=== PATIENT | female | born 1955 | race Caucasian/White ===

== ENCOUNTER 2017-05-27 11:10 | Inpatient (IN) | payer MEDICAID, OTHER ==
[~2017-05-27] VITALS: Ht 165.1 cm; Wt 51.0 kg
[~2017-05-27 11:10] MED LIST: CYCL-394 PO; ZOF4T PO
[2017-05-27 13:05] LABS: BASOPHILS % (AUTO) 0.6 % (0-1); EOSINOPHILS % (AUTO) 0.1 % (0-6); HEMATOCRIT 43.1 % (35.0-45.0); HEMOGLOBIN 14.5 g/dl (12.0-16.0); LYMPHOCYTES # (AUTO) 0.9 X10'3 (1.1-4.8); LYMPHOCYTES % (AUTO) 13.5 % (21-51); MEAN CORPUSCULAR HEMOGLOBIN 32.6 PG (27.0-31.0); MEAN CORPUSCULAR HGB CONC 33.7 % (33.0-36.5); MEAN CORPUSCULAR VOLUME 96.8 FL (78-98); MEAN PLATELET VOLUME 9.2 FL (7.4-10.4); MONOCYTES # (AUTO) 0.7 X10'3 (0-0.9); MONOCYTES % (AUTO) 10.4 % (2-12); NEUTROPHILS # (AUTO) 5.3 X10'3 (1.8-7.7); NEUTROPHILS % (AUTO) 75.4 % (42-75); PLATELET COUNT 195 X10'3 (140-440); RED BLOOD COUNT 4.45 X10'6 (4.20-5.60); RED CELL DISTRIBUTION WIDTH 12.9 % (11.5-14.5)
[2017-05-27] MEDS ORDERED: ipratropium/albuterol 3ml nebule NEB ONE ×2 (13:05→15:25)
[2017-05-27 13:21] LABS: ALANINE AMINOTRANSFERASE 21 U/L (12-78); ALBUMIN 3.2 G/DL (3.4-5.0); ALBUMIN/GLOBULIN RATIO 0.9 (1.1-1.5); ALKALINE PHOSPHATASE 72 IU/L (46-116); ANION GAP 5 (8-16); ASPARTATE AMINO TRANSFERASE 32 U/L (10-37); BILIRUBIN,TOTAL 0.3 MG/DL (0.1-1.0); BLOOD UREA NITROGEN 11 MG/DL (7-18); BUN/CREATININE RATIO 17.5 (6.6-38.0); CALCIUM 8.2 MG/DL (8.5-10.1); CHLORIDE 98 MMOL/L (99-107); CREATININE 0.63 MG/DL (0.40-0.90); GLUCOSE 97 MG/DL (70-104); POTASSIUM 3.3 MMOL/L (3.5-5.1); SODIUM 135 MMOL/L (135-145); TOTAL CARBON DIOXIDE 31.9 MMOL/L (24-32); TOTAL PROTEIN 6.6 G/DL (6.4-8.2); eGFR > 90 ML/MIN
[2017-05-27 13:24] LABS: PARTIAL THROMBOPLASTIN TIME 32 SECONDS (22-32); PROTHROMBIN TIME 10.1 SECONDS (9.0-12.0)
[2017-05-27 14:08] LABS: PLATELET ESTIMATE NORMAL; TOTAL CELLS COUNTED 100
[2017-05-27 14:14] LABS: CLARITY,URINE CLEAR (Clear); COLOR,URINE YELLOW (Yellow); GLUCOSE, URINE NEGATIVE (Neg); KETONES,URINE 15 mg/dl (Neg); LEUKOCYTE ESTERASE ,URINE NEGATIVE (Neg); NITRITES, URINE NEGATIVE (Neg); OCCULT BLOOD,URINE MODERATE (Neg); PROTEIN,URINE 100 mg/dl (Neg); UROBILINOGEN,URINE 0.2 E.U/dL (0.2-1.0)
[2017-05-27 14:16] LABS: UA COLLECTION TYPE CLN CATCH MIDSTREAM
[2017-05-27 14:18] LABS: WBC,URINE 0-4 /HPF (0-4)
[2017-05-27 14:19] LABS: BACTERIA,URINE FEW /HPF (Neg); RBC,URINE 0-2 /HPF (0-2); SQUAMOUS EPITHELIAL CELL,UR FEW /LPF (FEW)
[2017-05-27] MEDS ORDERED: oseltamivir phos 75mg capsule PO ONE (14:35)
[2017-05-27] MEDS ORDERED: TAM75C PO (15:13)
[2017-05-27] MEDS ORDERED: ALBU8.5H8 IH (15:13)
[2017-05-27] MEDS ORDERED: AMOX-422 PO (15:13)
[2017-05-27] MEDS ORDERED: METH4TAB81 PO (15:13)
[2017-05-27] MEDS ORDERED: dexamethasone sod phosphate 10mg/ml inj IM STA (15:22)
[2017-05-27] MEDS ORDERED: acetaminophen 325mg tablet PO PRN (15:50)
[2017-05-27] MEDS ORDERED: ipratropium/albuterol 3ml nebule NEB PRN (15:50)
[2017-05-27] MEDS ORDERED: ondansetron/PF 4mg/2ml inj IV PRN (15:50)
[2017-05-27] MEDS ORDERED: magnesium hydroxide 30ml (MOM) UD suspension PO PRN (15:50)
[2017-05-27] MEDS ORDERED: mag hydrox/Alum hydrox/simeth 30ml oral suspension PO PRN (15:50)
[2017-05-27] MEDS ORDERED: dronabinol 2.5mg capsule PO PRN (16:30)
[2017-05-27 19:00] VITALS: BP_SYST 101; BP_SYST 96; BP_DIAS 62; BP_DIAS 63
[2017-05-27] MEDS: oseltamivir phos 75mg capsule PO SCH (21:29)
[2017-05-27] MEDS: methylPREDNISolone sod succ 125mg/2ml vial IV SCH (21:29)
[2017-05-28] VITALS: BP 104/66
[2017-05-28 04:10] LABS: BASOPHILS % (AUTO) 0.4 % (0-1); EOSINOPHILS % (AUTO) 0.1 % (0-6); HEMATOCRIT 42.3 % (35.0-45.0); HEMOGLOBIN 14.4 g/dl (12.0-16.0); LYMPHOCYTES # (AUTO) 0.5 X10'3 (1.1-4.8); LYMPHOCYTES % (AUTO) 21.7 % (21-51); MEAN CORPUSCULAR HEMOGLOBIN 32.6 PG (27.0-31.0); MEAN CORPUSCULAR HGB CONC 34.2 % (33.0-36.5); MEAN CORPUSCULAR VOLUME 95.3 FL (78-98); MEAN PLATELET VOLUME 9.9 FL (7.4-10.4); MONOCYTES # (AUTO) 0.1 X10'3 (0-0.9); NEUTROPHILS # (AUTO) 1.7 X10'3 (1.8-7.7); NEUTROPHILS % (AUTO) 71.8 % (42-75); PLATELET COUNT 193 X10'3 (140-440); RED BLOOD COUNT 4.44 X10'6 (4.20-5.60); RED CELL DISTRIBUTION WIDTH 13.1 % (11.5-14.5); WHITE BLOOD COUNT 2.4 X10'3 (4.5-11.0)
[2017-05-28 04:28] LABS: ALANINE AMINOTRANSFERASE 30 U/L (12-78); ALBUMIN/GLOBULIN RATIO 0.9 (1.1-1.5); ALKALINE PHOSPHATASE 67 IU/L (46-116); ANION GAP 5 (8-16); ASPARTATE AMINO TRANSFERASE 36 U/L (10-37); BILIRUBIN,TOTAL 0.2 MG/DL (0.1-1.0); BLOOD UREA NITROGEN 10 MG/DL (7-18); BUN/CREATININE RATIO 17.2 (6.6-38.0); CALCIUM 8.2 MG/DL (8.5-10.1); CHLORIDE 99 MMOL/L (99-107); CREATININE 0.58 MG/DL (0.40-0.90); GLUCOSE 153 MG/DL (70-104); POTASSIUM 3.3 MMOL/L (3.5-5.1); SODIUM 136 MMOL/L (135-145); TOTAL PROTEIN 6.4 G/DL (6.4-8.2); eGFR > 90 ML/MIN
[2017-05-28] MEDS ORDERED: pneumococcal 23-VAL P-sac vacc 25 mcg/0.5ml vial IMVAC ONE (06:10)
[2017-05-28 07:10] VITALS: BP 115/69
[2017-05-28] MEDS: methylPREDNISolone sod succ 125mg/2ml vial IV SCH ×3 (09:07→22:20)
[2017-05-28] MEDS: oseltamivir phos 75mg capsule PO SCH ×2 (09:09→22:21)
[2017-05-28] MEDS: enoxaparin 40mg/0.4ml syringe SQ SCH (09:11)
[2017-05-28] MEDS: levoFLOXACIN-Levaquin 750MG/D5 150 ML IV SCH (09:16)
[2017-05-28 09:49] LABS: TOTAL CELLS COUNTED 100
[2017-05-28 09:50] LABS: GIANT PLATELET FEW; PLATELET ESTIMATE NORMAL; SMUDGE CELLS 2+
[2017-05-28] MEDS ORDERED: acetaminophen 325mg tablet PO PRN (11:00)
[2017-05-28] MEDS: dronabinol 2.5mg capsule PO PRN ×3 (11:08→22:32)
[2017-05-28 11:39] VITALS: BP 109/64
[2017-05-28] MEDS: lactobacillus rhamnosus 10,000 MMU CELLS/CAPSULE PO SCH (17:45)
[2017-05-28] MEDS ORDERED: potassium Cl 40MEQ/NS 500ml 500 ML IV PRN ×2 (17:55)
[2017-05-28] MEDS ORDERED: magnesium 2GM in 50ml NS 50 ML IV PRN (17:55)
[2017-05-28] MEDS ORDERED: magnesium 4gm in 100ml NS 100 ML IV PRN (17:55)
[2017-05-28] MEDS ORDERED: magnesium Cl slow-release 64mg tablet PO PRN (17:55)
[2017-05-28] MEDS ORDERED: potassium Cl 20 mEq SR tablet PO PRN ×2 (17:55)
[2017-05-28 19:00] VITALS: BP 96/62
[2017-05-29] VITALS: BP 104/66
[2017-05-29 05:45] LABS: BASOPHILS % (AUTO) 0.1 % (0-1); EOSINOPHILS % (AUTO) 0.4 % (0-6); HEMATOCRIT 41.3 % (35.0-45.0); HEMOGLOBIN 13.9 g/dl (12.0-16.0); LYMPHOCYTES # (AUTO) 0.7 X10'3 (1.1-4.8); LYMPHOCYTES % (AUTO) 9.1 % (21-51); MEAN CORPUSCULAR HEMOGLOBIN 32.3 PG (27.0-31.0); MEAN CORPUSCULAR HGB CONC 33.6 % (33.0-36.5); MEAN CORPUSCULAR VOLUME 96.3 FL (78-98); MEAN PLATELET VOLUME 9.9 FL (7.4-10.4); MONOCYTES # (AUTO) 0.8 X10'3 (0-0.9); MONOCYTES % (AUTO) 9.5 % (2-12); NEUTROPHILS # (AUTO) 6.5 X10'3 (1.8-7.7); NEUTROPHILS % (AUTO) 80.9 % (42-75); PLATELET COUNT 193 X10'3 (140-440); RED BLOOD COUNT 4.29 X10'6 (4.20-5.60)
[2017-05-29 06:24] LABS: ALANINE AMINOTRANSFERASE 52 U/L (12-78); ALBUMIN 2.9 G/DL (3.4-5.0); ALBUMIN/GLOBULIN RATIO 0.9 (1.1-1.5); ALKALINE PHOSPHATASE 63 IU/L (46-116); ANION GAP 4 (8-16); ASPARTATE AMINO TRANSFERASE 42 U/L (10-37); BILIRUBIN,TOTAL 0.3 MG/DL (0.1-1.0); BLOOD UREA NITROGEN 13 MG/DL (7-18); BUN/CREATININE RATIO 20.6 (6.6-38.0); CALCIUM 8.8 MG/DL (8.5-10.1); CHLORIDE 100 MMOL/L (99-107); CREATININE 0.63 MG/DL (0.40-0.90); GLUCOSE 138 MG/DL (70-104); SODIUM 138 MMOL/L (135-145); TOTAL CARBON DIOXIDE 34.2 MMOL/L (24-32); TOTAL PROTEIN 6.2 G/DL (6.4-8.2); eGFR > 90 ML/MIN
[2017-05-29] MEDS: lactobacillus rhamnosus 10,000 MMU CELLS/CAPSULE PO SCH ×2 (07:45→17:00)
[2017-05-29] MEDS: oseltamivir phos 75mg capsule PO SCH ×2 (07:45→21:22)
[2017-05-29] MEDS: levoFLOXACIN-Levaquin 750MG/D5 150 ML IV SCH (07:46)
[2017-05-29] MEDS: enoxaparin 40mg/0.4ml syringe SQ SCH (07:46)
[2017-05-29 07:56] VITALS: BP 108/64
[2017-05-29] MEDS: methylPREDNISolone sod succ 125mg/2ml vial IV SCH ×3 (08:00→21:21)
[2017-05-29] MEDS ORDERED: methylPREDNISolone sod succ 125mg/2ml vial IV ONE (09:00)
[2017-05-29] MEDS: dronabinol 2.5mg capsule PO PRN ×3 (09:52→21:22)
[2017-05-29 11:41] VITALS: BP 106/46
[2017-05-29 20:00] VITALS: BP 106/61
[2017-05-30] VITALS: BP 113/72
[2017-05-30 05:13] LABS: BASOPHILS % (AUTO) 0.3 % (0-1); EOSINOPHILS % (AUTO) 0.3 % (0-6); HEMATOCRIT 40.5 % (35.0-45.0); HEMOGLOBIN 13.6 g/dl (12.0-16.0); LYMPHOCYTES # (AUTO) 0.7 X10'3 (1.1-4.8); LYMPHOCYTES % (AUTO) 8.8 % (21-51); MEAN CORPUSCULAR HEMOGLOBIN 32.7 PG (27.0-31.0); MEAN CORPUSCULAR HGB CONC 33.5 % (33.0-36.5); MEAN CORPUSCULAR VOLUME 97.7 FL (78-98); MEAN PLATELET VOLUME 9.4 FL (7.4-10.4); MONOCYTES # (AUTO) 0.7 X10'3 (0-0.9); MONOCYTES % (AUTO) 8.9 % (2-12); NEUTROPHILS # (AUTO) 6.9 X10'3 (1.8-7.7); NEUTROPHILS % (AUTO) 81.7 % (42-75); PLATELET COUNT 198 X10'3 (140-440); RED BLOOD COUNT 4.14 X10'6 (4.20-5.60); RED CELL DISTRIBUTION WIDTH 13.4 % (11.5-14.5); WHITE BLOOD COUNT 8.4 X10'3 (4.5-11.0)
[2017-05-30 05:41] LABS: ALANINE AMINOTRANSFERASE 67 U/L (12-78); ALBUMIN 2.7 G/DL (3.4-5.0); ALBUMIN/GLOBULIN RATIO 0.9 (1.1-1.5); ALKALINE PHOSPHATASE 56 IU/L (46-116); ANION GAP 6 (8-16); ASPARTATE AMINO TRANSFERASE 45 U/L (10-37); BILIRUBIN,TOTAL 0.2 MG/DL (0.1-1.0); BLOOD UREA NITROGEN 14 MG/DL (7-18); CALCIUM 8.2 MG/DL (8.5-10.1); CHLORIDE 100 MMOL/L (99-107); CREATININE 0.61 MG/DL (0.40-0.90); GLUCOSE 161 MG/DL (70-104); MAGNESIUM 2.2 MG/DL (1.5-2.4); POTASSIUM 3.8 MMOL/L (3.5-5.1); SODIUM 136 MMOL/L (135-145); TOTAL CARBON DIOXIDE 30.4 MMOL/L (24-32); TOTAL PROTEIN 5.8 G/DL (6.4-8.2); eGFR > 90 ML/MIN
[2017-05-30 07:00] VITALS: BP 107/63
[2017-05-30] MEDS: levoFLOXACIN-Levaquin 750MG/D5 150 ML IV SCH (08:41)
[2017-05-30] MEDS: oseltamivir phos 75mg capsule PO SCH (08:41)
[2017-05-30] MEDS: enoxaparin 40mg/0.4ml syringe SQ SCH (08:42)
[2017-05-30] MEDS: methylPREDNISolone sod succ 125mg/2ml vial IV SCH (08:43)
[2017-05-30] MEDS: lactobacillus rhamnosus 10,000 MMU CELLS/CAPSULE PO SCH (10:46)
[2017-05-30] MEDS: dronabinol 2.5mg capsule PO PRN (10:46)
[2017-05-30] MEDS ORDERED: BUDE10.2 INH (11:37)
[2017-05-30] MEDS ORDERED: ALBU8.5H8 IH (11:37)
[2017-05-30] MEDS ORDERED: LEVO500T89 PO (11:37)
[2017-05-30] MEDS ORDERED: TAM75C PO (11:37)
[2017-05-30] MEDS ORDERED: PRED20TA PO (11:37)
== END 2017-05-30 14:40 | disposition home or self-care (01) | DRG 140 ==
LOC: ER 11:11 → ED HOLD 15:46 → SUR 3N 17:51
PROVIDERS: ADMIT Family Medicine; ATTEND Family Medicine
DX: J44.1 Chronic obstructive pulmonary disease with (acute) exacerbation (principal); J96.01 Acute respiratory failure with hypoxia; J10.00 Influenza due to other identified influenza virus with unspecified type of pneumonia; G89.29 Other chronic pain; M54.9 Dorsalgia, unspecified; Z90.49 Acquired absence of other specified parts of digestive tract; Z90.710 Acquired absence of both cervix and uterus; Z88.1 Allergy status to other antibiotic agents; Z88.2 Allergy status to sulfonamides; Z79.899 Other long term (current) drug therapy; Z87.891 Personal history of nicotine dependence; Z83.3 Family history of diabetes mellitus
CPT/HCPCS: 36415; 80053; 81001; 83605; 83735; 84145; 85025; 85610; 85730; 87040; 87070; 87502; 87503; 90732; 94640; 94667; 94668; 94760; 96372; 99285; J1100; J1650; J1956; J2270; J2930; J7030; Q0167

== ENCOUNTER 2018-05-06 08:44 | Emergency (ER) | payer MEDICAID, OTHER ==
[~2018-05-06] VITALS: Ht 165.1 cm; Wt 54.1 kg
[~2018-05-06 08:44] MED LIST changes: +ALBU8.5H8 IH; +BUDE10.2 INH; +TAM75C PO
[2018-05-06 08:51] VITALS: BP 128/75
[2018-05-06] MEDS ORDERED: HYDR-4353 PO (10:29)
[2018-05-06] MEDS ORDERED: HYDROcodone/acetaminophen 10/325mg tab PO ONE (10:30)
== END 2018-05-06 11:47 | disposition home or self-care (01) ==
LOC: ER 08:44
DX: S22.060A Wedge compression fracture of T7-T8 vertebra, initial encounter for closed fracture (principal); G89.29 Other chronic pain; Z90.49 Acquired absence of other specified parts of digestive tract; Z90.710 Acquired absence of both cervix and uterus; Z88.2 Allergy status to sulfonamides; Z88.1 Allergy status to other antibiotic agents; Z79.899 Other long term (current) drug therapy; X58.XXXA Exposure to other specified factors, initial encounter; Y93.89 Activity, other specified; Y92.89 Other specified places as the place of occurrence of the external cause; Y99.9 Unspecified external cause status
CPT/HCPCS: 72074; 99284

== ENCOUNTER 2019-05-23 13:16 | Inpatient (IN) | payer MEDICAID, OTHER ==
[~2019-05-23] VITALS: Ht 165.1 cm; Wt 51.2 kg
[2019-05-23 16:04] LABS: BASOPHILS # (AUTO) 0.1 X10'3 (0-0.2); BASOPHILS % (AUTO) 0.6 % (0-1); EOSINOPHILS % (AUTO) 0 % (0-6); HEMATOCRIT 43.4 % (35.0-45.0); HEMOGLOBIN 14.7 g/dl (12.0-16.0); LYMPHOCYTES # (AUTO) 1.5 X10'3 (1.1-4.8); LYMPHOCYTES % (AUTO) 6.6 % (21-51); MEAN CORPUSCULAR HEMOGLOBIN 32.8 PG (27.0-31.0); MEAN CORPUSCULAR HGB CONC 33.8 g/dL (33.0-36.5); MEAN PLATELET VOLUME 9.4 FL (7.4-10.4); MONOCYTES # (AUTO) 1.4 X10'3 (0-0.9); MONOCYTES % (AUTO) 6.1 % (2-12); NEUTROPHILS # (AUTO) 20.1 X10'3 (1.8-7.7); NEUTROPHILS % (AUTO) 86.7 % (42-75); PLATELET COUNT 284 X10'3 (140-440); RED BLOOD COUNT 4.47 X10'6 (4.20-5.60); RED CELL DISTRIBUTION WIDTH 13.5 % (11.5-14.5); WHITE BLOOD COUNT 23.2 X10'3 (4.5-11.0)
[2019-05-23 16:15] LABS: ALANINE AMINOTRANSFERASE 11 U/L (12-78); ALBUMIN 3.7 G/DL (3.4-5.0); ALKALINE PHOSPHATASE 71 IU/L (46-116); ANION GAP 6 (8-16); ASPARTATE AMINO TRANSFERASE 18 U/L (10-37); BILIRUBIN,TOTAL 1.1 MG/DL (0.1-1.0); BLOOD UREA NITROGEN 11 MG/DL (7-18); BUN/CREATININE RATIO 13.8 (6.6-38.0); CALCIUM 9.5 MG/DL (8.5-10.1); CHLORIDE 99 MMOL/L (99-107); GLUCOSE 114 MG/DL (70-104); POTASSIUM 3.5 MMOL/L (3.5-5.1); SODIUM 137 MMOL/L (135-145); TOTAL CARBON DIOXIDE 31.8 MMOL/L (24-32); TOTAL PROTEIN 7.5 G/DL (6.4-8.2); eGFR 72 ML/MIN
[2019-05-23 16:23] LABS: PLATELET ESTIMATE NORMAL; TOTAL CELLS COUNTED 100; TOXIC VACUOLATION 2+
[2019-05-23] MEDS ORDERED: prednisone 10mg tablet PO STA (17:04)
[2019-05-23] MEDS ORDERED: albuterol 2.5 MG/3 ML nebule NEB ONE (17:05)
[2019-05-23] MEDS ORDERED: PRED20TA PO (17:41)
[2019-05-23] MEDS ORDERED: AZIT250T83 PO (17:41)
[2019-05-23] MEDS ORDERED: acetaminophen 325mg tablet PO ONE (17:45)
--- NOTE | 2019-05-23 17:55 | NUR ---
walked the pt. and pt. o2 sats at the beginning of the walk started at 93% and o2 sats went down to 91%. pt. walked about 30 feet and said "I feel like I can't breathe". BOWEN Oliver aware.
[2019-05-23] MEDS ORDERED: normal saline 1000ML IV soln IVB ONE (18:55)
[2019-05-23] MEDS ORDERED: FLUT1BLS13 PO (19:31)
[2019-05-23] MEDS ORDERED: BECL10.62 PO (19:33)
--- NOTE | 2019-05-23 19:35 | NUR ---
placed pt on 2 liter of o2 per n/c for desats to 88-89 % ra increase to o2 sats to 92-93% raquel sánchez
[2019-05-23] MEDS ORDERED: CefTRIAXone 2gm/D5W 50ml 50 ML IV ONE (19:45)
[2019-05-23] MEDS ORDERED: potassium Cl 20 mEq SR tablet PO PRN (19:50)
[2019-05-23] MEDS ORDERED: magnesium 2GM in 50ml NS 50 ML IV PRN (19:50)
[2019-05-23] MEDS ORDERED: magnesium 4gm in 100ml NS 100 ML IV PRN (19:50)
[2019-05-23] MEDS ORDERED: mag hydrox/Alum hydrox/simeth 30ml oral suspension PO PRN (19:50)
[2019-05-23] MEDS ORDERED: magnesium Cl slow-release 64mg tablet PO PRN (19:50)
[2019-05-23] MEDS ORDERED: normal saline 1000ml 1,000 ML IV ONE (19:50)
[2019-05-23] MEDS ORDERED: potassium CL 10mEq/100ml bag 100 ML IV PRN ×2 (19:50)
[2019-05-23] MEDS ORDERED: ondansetron/PF 4mg/2ml inj IV PRN (19:50)
[2019-05-23] MEDS ORDERED: acetaminophen 325mg tablet PO PRN (19:50)
[2019-05-23] MEDS ORDERED: magnesium hydroxide 30ml (MOM) UD suspension PO PRN (19:50)
[2019-05-23] MEDS ORDERED: BUDE10.2 INH (20:34)
[2019-05-23] MEDS ORDERED: ALBU8.5H8 IH (20:34)
[2019-05-23 21:15] VITALS: BP 112/63
[2019-05-23] MEDS: K and/or MAG REPLACEMENT MC SCH (21:50)
[2019-05-23] MEDS ORDERED: benzocaine/menthol oral lozeng 1 EACH BOX MM PRN (22:00)
--- NOTE | 2019-05-23 22:00 | NUR ---
patient c/o pain with urination, consistent cough and sore throat. Called Dr. Ding for order for tessalon pearles, UA and throat lozenges. New orders received.
[2019-05-23] MEDS ORDERED: ipratropium/albuterol 3ml nebule NEB PRN (22:05)
[2019-05-23 23:41] LABS: CLARITY,URINE CLEAR (Clear); COLOR,URINE YELLOW (Yellow); GLUCOSE, URINE NEGATIVE (Neg); KETONES,URINE 15 mg/dl (Neg); LEUKOCYTE ESTERASE ,URINE TRACE (Neg); NITRITES, URINE NEGATIVE (Neg); OCCULT BLOOD,URINE MODERATE (Neg); PH,URINE 6.5 (4.8-8.0); PROTEIN,URINE TRACE mg/dl (Neg); UROBILINOGEN,URINE 0.2 E.U/dL (0.2-1.0)
[2019-05-23 23:48] LABS: UA COLLECTION TYPE NON-SPECIFIED
[2019-05-23 23:49] LABS: BACTERIA,URINE FEW /HPF (Neg); RBC,URINE 0-2 /HPF (0-2); SQUAMOUS EPITHELIAL CELL,UR FEW /LPF (FEW)
[2019-05-24] MEDS: benzonatate 100mg capsule PO PRN ×3 (04:19→19:14)
[2019-05-24] MEDS: acetaminophen 325mg tablet PO PRN ×2 (05:38→19:19)
[2019-05-24 06:00] VITALS: BP 101/66
--- NOTE | 2019-05-24 06:00 | NUR ---
Patient in room ORTHO 4015. I have received report from KACY YODER and had the opportunity to ask questions and assume patient care.
[2019-05-24 06:12] LABS: BASOPHILS # (AUTO) 0.1 X10'3 (0-0.2); BASOPHILS % (AUTO) 0.3 % (0-1); EOSINOPHILS % (AUTO) 0.1 % (0-6); HEMATOCRIT 36.8 % (35.0-45.0); HEMOGLOBIN 12.5 g/dl (12.0-16.0); LYMPHOCYTES # (AUTO) 1.7 X10'3 (1.1-4.8); LYMPHOCYTES % (AUTO) 7.6 % (21-51); MEAN CORPUSCULAR HEMOGLOBIN 32.9 PG (27.0-31.0); MEAN CORPUSCULAR VOLUME 96.7 FL (78-98); MEAN PLATELET VOLUME 9.6 FL (7.4-10.4); MONOCYTES # (AUTO) 1.7 X10'3 (0-0.9); MONOCYTES % (AUTO) 7.4 % (2-12); NEUTROPHILS # (AUTO) 19.3 X10'3 (1.8-7.7); NEUTROPHILS % (AUTO) 84.6 % (42-75); PLATELET COUNT 247 X10'3 (140-440); RED BLOOD COUNT 3.81 X10'6 (4.20-5.60); RED CELL DISTRIBUTION WIDTH 13.5 % (11.5-14.5); WHITE BLOOD COUNT 22.8 X10'3 (4.5-11.0)
--- NOTE | 2019-05-24 06:18 | NUR ---
Problems reprioritized. Patient report given, questions answered & plan of care reviewed with [].
[2019-05-24 06:24] LABS: ALBUMIN 2.8 G/DL (3.4-5.0); ANION GAP 5 (8-16); BLOOD UREA NITROGEN 9 MG/DL (7-18); CALCIUM 8.4 MG/DL (8.5-10.1); CHLORIDE 106 MMOL/L (99-107); GLUCOSE 88 MG/DL (70-104); POTASSIUM 3.6 MMOL/L (3.5-5.1); SODIUM 140 MMOL/L (135-145); TOTAL CARBON DIOXIDE 29.5 MMOL/L (24-32); eGFR > 90 ML/MIN
[2019-05-24] MEDS: ipratropium/albuterol 3ml nebule NEB SCH ×4 (07:07→20:08)
[2019-05-24] MEDS: K and/or MAG REPLACEMENT MC SCH ×2 (07:50→20:00)
[2019-05-24] MEDS: azithromycin 250mg tablet PO SCH (07:54)
[2019-05-24] MEDS: enoxaparin 40mg/0.4ml syringe SQ SCH (07:55)
[2019-05-24] MEDS ORDERED: predniSONE 20 mg tablet PO SCH (08:00)
[2019-05-24 10:00] VITALS: BP 130/72
[2019-05-24 18:00] VITALS: BP 99/64
--- NOTE | 2019-05-24 18:20 | NUR ---
Problems reprioritized. Patient report given, questions answered & plan of care reviewed with TOSIN YODER.
--- NOTE | 2019-05-24 18:37 | NUR ---
Patient in room ORTHO 4015. I have received report from Joslyn YODER and had the opportunity to ask questions and assume patient care.
[2019-05-24] MEDS: lactobacillus rhamnosus 10,000 MMU CELLS/CAPSULE PO SCH (19:11)
[2019-05-24] MEDS: CefTRIAXone 2gm/D5W 50ml 50 ML IV SCH (19:12)
[2019-05-24] MEDS ORDERED: ipratropium/albuterol 3ml nebule NEB SCH (21:00)
[2019-05-24 22:00] VITALS: BP 108/61
[2019-05-25] MEDS: benzonatate 100mg capsule PO PRN ×3 (01:39→21:38)
[2019-05-25 06:00] VITALS: BP 104/57
[2019-05-25 06:31] LABS: BASOPHILS # (AUTO) 0.1 X10'3 (0-0.2); BASOPHILS % (AUTO) 0.4 % (0-1); EOSINOPHILS # (AUTO) 0.1 X10'3 (0-0.9); HEMATOCRIT 33.1 % (35.0-45.0); HEMOGLOBIN 11.5 g/dl (12.0-16.0); LYMPHOCYTES # (AUTO) 2.2 X10'3 (1.1-4.8); LYMPHOCYTES % (AUTO) 17.2 % (21-51); MEAN CORPUSCULAR HEMOGLOBIN 33.6 PG (27.0-31.0); MEAN CORPUSCULAR HGB CONC 34.9 g/dL (33.0-36.5); MEAN CORPUSCULAR VOLUME 96.3 FL (78-98); MEAN PLATELET VOLUME 9.5 FL (7.4-10.4); MONOCYTES # (AUTO) 1.2 X10'3 (0-0.9); MONOCYTES % (AUTO) 8.9 % (2-12); NEUTROPHILS # (AUTO) 9.4 X10'3 (1.8-7.7); NEUTROPHILS % (AUTO) 72.5 % (42-75); PLATELET COUNT 250 X10'3 (140-440); RED BLOOD COUNT 3.43 X10'6 (4.20-5.60); RED CELL DISTRIBUTION WIDTH 13.3 % (11.5-14.5)
--- NOTE | 2019-05-25 06:43 | NUR ---
Problems reprioritized. Patient report given, questions answered & plan of care reviewed with EDITH YODER.
[2019-05-25 06:51] LABS: ALBUMIN 2.7 G/DL (3.4-5.0); ANION GAP 1 (8-16); BLOOD UREA NITROGEN 11 MG/DL (7-18); BUN/CREATININE RATIO 17.7 (6.6-38.0); CALCIUM 8.5 MG/DL (8.5-10.1); CHLORIDE 108 MMOL/L (99-107); CREATININE 0.62 MG/DL (0.40-0.90); GLUCOSE 93 MG/DL (70-104); SODIUM 143 MMOL/L (135-145); TOTAL CARBON DIOXIDE 33.8 MMOL/L (24-32); eGFR > 90 ML/MIN
--- NOTE | 2019-05-25 07:10 | NUR ---
PAGER ID: [phone] MESSAGE: [id number] Joemarisol Pikimal+ 3.0 will start replacement per protocol 0967 Nedra
[2019-05-25] MEDS: K and/or MAG REPLACEMENT MC SCH ×2 (08:00→20:00)
[2019-05-25] MEDS: predniSONE 20 mg tablet PO SCH (08:23)
[2019-05-25] MEDS: lactobacillus rhamnosus 10,000 MMU CELLS/CAPSULE PO SCH ×2 (08:23→19:18)
[2019-05-25] MEDS: azithromycin 250mg tablet PO SCH (08:23)
[2019-05-25] MEDS: enoxaparin 40mg/0.4ml syringe SQ SCH (08:24)
[2019-05-25] MEDS: potassium Cl 20 mEq SR tablet PO PRN ×2 (08:26→12:51)
[2019-05-25] MEDS: ipratropium/albuterol 3ml nebule NEB SCH ×4 (09:06→20:04)
[2019-05-25 10:30] VITALS: BP 104/57
[2019-05-25 14:00] VITALS: BP 106/62
[2019-05-25] MEDS ORDERED: LEVO500T2 PO (16:24)
[2019-05-25] MEDS ORDERED: PRED20TA PO (16:24)
--- NOTE | 2019-05-25 17:15 | NUR ---
ATTEMPT TO GIVE DC INSTRUCTIONS TO PATIENT, SHE IS EMOTIONAL AND STATES SHE IS SCARED TO AND THE DR CONNOR LISTEN, JUST TALKED OVER HER. STATES SHE DOES NOT HAVE OXYGEN AT HOME. NOTIFIED DR THOMPSON VIA PAGE.
[2019-05-25 18:00] VITALS: BP 98/64
--- NOTE | 2019-05-25 18:04 | NUR ---
SITTING IN BED O2 SAT 95 ON 1.5L NC, 93 RA, AMB ON RA DROPPED TO 83-88%
--- NOTE | 2019-05-25 18:38 | NUR ---
Patient in room ORTHO 4015. I have received report from Nedra YODER and had the opportunity to ask questions and assume patient care.
[2019-05-25] MEDS: CefTRIAXone 2gm/D5W 50ml 50 ML IV SCH (19:18)
[2019-05-25] MEDS: acetaminophen 325mg tablet PO PRN (21:37)
[2019-05-25 22:00] VITALS: BP 111/70
[2019-05-25 23:51] LABS: ABG BASE EXCESS 3.4 mmol/L (-2.0-3.0); ABG HCO3 28.6 mmol/L (22.0-26.0); ABG OXYGEN SATURATION 97.1 % (95-98); ABG PCO2 (T) 45.8 mmHg (35.0-45.0); ABG PH (T) 7.413 (7.350-7.450); ABG PO2 (T) 94.8 mmHg (83-108); ALLEN'S TEST Positive; FLOW 1 L/min; FMetHb 0.2 % (0.3-1.12); FO2Hb 96.9 % (94-100); PATIENT TEMPERATURE 36.9
[2019-05-26 06:00] VITALS: BP 101/58
[2019-05-26 06:03] LABS: BASOPHILS # (AUTO) 0.1 X10'3 (0-0.2); BASOPHILS % (AUTO) 1.1 % (0-1); EOSINOPHILS # (AUTO) 0.2 X10'3 (0-0.9); EOSINOPHILS % (AUTO) 2.9 % (0-6); HEMATOCRIT 34.3 % (35.0-45.0); HEMOGLOBIN 11.7 g/dl (12.0-16.0); LYMPHOCYTES # (AUTO) 2.5 X10'3 (1.1-4.8); LYMPHOCYTES % (AUTO) 31.4 % (21-51); MEAN CORPUSCULAR HEMOGLOBIN 33.4 PG (27.0-31.0); MEAN CORPUSCULAR HGB CONC 34.1 g/dL (33.0-36.5); MEAN PLATELET VOLUME 9.5 FL (7.4-10.4); MONOCYTES # (AUTO) 0.9 X10'3 (0-0.9); MONOCYTES % (AUTO) 10.9 % (2-12); NEUTROPHILS # (AUTO) 4.2 X10'3 (1.8-7.7); NEUTROPHILS % (AUTO) 53.7 % (42-75); PLATELET COUNT 281 X10'3 (140-440); RED BLOOD COUNT 3.49 X10'6 (4.20-5.60); RED CELL DISTRIBUTION WIDTH 13.4 % (11.5-14.5); WHITE BLOOD COUNT 7.9 X10'3 (4.5-11.0)
[2019-05-26 06:10] LABS: ALBUMIN 2.7 G/DL (3.4-5.0); ANION GAP 3 (8-16); BLOOD UREA NITROGEN 9 MG/DL (7-18); BUN/CREATININE RATIO 16.7 (6.6-38.0); CALCIUM 8.5 MG/DL (8.5-10.1); CHLORIDE 107 MMOL/L (99-107); CREATININE 0.54 MG/DL (0.40-0.90); GLUCOSE 81 MG/DL (70-104); POTASSIUM 3.7 MMOL/L (3.5-5.1); SODIUM 143 MMOL/L (135-145); TOTAL CARBON DIOXIDE 32.7 MMOL/L (24-32); eGFR > 90 ML/MIN
--- NOTE | 2019-05-26 06:12 | NUR ---
Problems reprioritized. Patient report given, questions answered & plan of care reviewed with Nedra YODER.
[2019-05-26] MEDS: K and/or MAG REPLACEMENT MC SCH (07:35)
[2019-05-26] MEDS: ipratropium/albuterol 3ml nebule NEB SCH ×3 (07:55→15:00)
[2019-05-26] MEDS: enoxaparin 40mg/0.4ml syringe SQ SCH (08:08)
[2019-05-26] MEDS: lactobacillus rhamnosus 10,000 MMU CELLS/CAPSULE PO SCH (08:08)
[2019-05-26] MEDS: azithromycin 250mg tablet PO SCH (08:08)
[2019-05-26] MEDS: predniSONE 20 mg tablet PO SCH (08:08)
[2019-05-26 11:00] VITALS: BP 117/67
--- NOTE | 2019-05-26 11:46 | NUR ---
O2 Sat at rest on room air:92__% If below 89%: Recovery O2 Sat at rest on ___LPM:___%:___% via (mask/nasal cannula, etc..) No further documentation is necessary. If O2 Sat did not drop below 89% on room air,ambulate patient on room air. O2 Sat while ambulating on room air:_89-90__% Recovery O2 Sat while ambulating on ___LPM:___% No further documentation is necessary. If patient does not drop below 89% while ambulating, he/she does not qualify for home O2.
--- NOTE | 2019-05-26 11:56 | NUR ---
Patient feeling better this am, test ambulation for home O2 went better this am. Sats did not drop below 89%. Will give patient IS to help with inspiration. Phlegm is clear now, was yellow yesterday.
--- NOTE | 2019-05-26 16:25 | NUR ---
PAGER ID: [phone] MESSAGE: [id number] Tang needs inhalers ordered please, medi talha just reinstated today [id number] [address]
--- NOTE | 2019-05-26 16:37 | NUR ---
discharge medications, including inhalers called into [facility] per Dr Vargas telephone order.
== END 2019-05-26 16:45 | disposition home or self-care (01) | DRG 140 ==
LOC: ER 13:17 → ED HOLD 19:49 → ORTHO 4S 21:15 → OBSVTOIN 05-26 09:30
PROVIDERS: ADMIT Hospitalist; ATTEND Internal Medicine
DX: J44.1 Chronic obstructive pulmonary disease with (acute) exacerbation (principal); B34.9 Viral infection, unspecified; G89.4 Chronic pain syndrome; M54.9 Dorsalgia, unspecified; R19.7 Diarrhea, unspecified; R09.02 Hypoxemia; Z83.3 Family history of diabetes mellitus; Z87.891 Personal history of nicotine dependence; Z90.49 Acquired absence of other specified parts of digestive tract; Z90.710 Acquired absence of both cervix and uterus; Z88.2 Allergy status to sulfonamides; Z79.899 Other long term (current) drug therapy
CPT/HCPCS: 36415; 36600; 71045; 80048; 80053; 81001; 82803; 83605; 83735; 84132; 84145; 85018; 85025; 87040; 87081; 87502; 87503; 94640; 94760; 96365; 97110; 97116; 97161; 97530; 99285; G0378; J0696; J1650; J7512